=== PATIENT | male | born 1955 | race American Indian/Alaskan Native ===

== ENCOUNTER 2018-01-15 18:15 | Inpatient (IN) | payer MEDICAID, OTHER ==
[2018-01-15] MEDS ORDERED: CATAPRES PO ONE (19:11)
[2018-01-15 20:56] LABS: Basophils % (Auto) 0.7 % (0.0-1.8); Eosinophils # (Auto) 0.2 K/mm3 (0.0-0.4); Eosinophils % (Auto) 3.2 % (0.0-4.3); Hematocrit 45.2 % (35.5-45.6); Hemoglobin 15.1 gm/dl (11.8-15.2); Lymphocytes # (Auto) 2.5 K/mm3 (1.2-5.4); Lymphocytes % (Auto) 42.5 % (13.4-35.0); Mean Corpuscular HGB Conc 33 % (32-34); Mean Corpuscular Hemoglobin 31 pg (28-32); Mean Corpuscular Volume 92 fl (84-94); Monocytes # (Auto) 0.5 K/mm3 (0.0-0.8); Monocytes % (Auto) 8.2 % (0.0-7.3); Platelet Count 219 K/mm3 (140-440); Red Blood Count 4.91 M/mm3 (3.65-5.03); Red Cell Distribution Width 15.2 % (13.2-15.2)
[2018-01-15 21:31] LABS: BUN/Creatinine Ratio 14; Blood Urea Nitrogen 13 mg/dL (9-20); Calcium 9.3 mg/dL (8.4-10.2); Hemolysis Index 35
--- NOTE | 2018-01-15 21:36 | Emergency Department Report ---
ED General Adult HPI - General Chief complaint: High BP Stated complaint: HBP Time Seen by Provider: 01/15/18 20:55 Source: patient Mode of arrival: Ambulatory Limitations: No Limitations - History of Present Illness Initial comments: 62-year-old male with history of hypertension and congestive heart failure was sent to ED by PCP for elevated blood pressure in office. She states he has been out of his BP meds 10 days. Patient reports shortness of breath, dyspnea on exertion, dizziness. States felt like he was going to pass out he is being triaged here in the ED. Patient denies chest pain. MD Complaint: elevated blood pressure -: Gradual Associated Symptoms: shortness of breath, weakness. denies: chest pain, nausea/ vomiting - Related Data Home Medications Medication Instructions Recorded Confirmed Last Taken Carvedilol 25 mg PO BID 01/15/18 01/15/18 Unknown Cyclobenzaprine [Flexeril] 10 mg PO DAILY 01/15/18 01/15/18 Unknown Ibuprofen [Motrin] 800 mg PO Q8HR PRN 01/15/18 01/15/18 Unknown Losartan/Hydrochlorothiazide 1 tab PO DAILY 01/15/18 01/15/18 Unknown [Losartan-Hctz 100-25 mg Tab] Tadalafil [Cialis] 1 tab PO DAILY 01/15/18 01/15/18 Unknown hydrALAZINE [Apresoline] 25 mg PO Q8HR 01/15/18 01/15/18 Unknown Allergies Allergy/AdvReac Type Severity Reaction Status Date / Time salicylates Allergy Unknown Verified 07/28/17 17:57 ED Review of Systems ROS: Stated complaint: HBP Other details as noted in HPI Comment: All other systems reviewed and negative Constitutional: denies: chills, fever Respiratory: shortness of breath. denies: cough Cardiovascular: denies: chest pain Gastrointestinal: denies: abdominal pain, nausea, vomiting Neurological: denies: headache ED Past Medical Hx - Past Medical History Hx Hypertension: Yes Hx Congestive Heart Failure: Yes Additional medical history: 4 CLASS of HEART FAILURE - Surgical History Additional Surgical History: Bilateral inguinal hernias - Social History Smoking Status: Former Smoker Substance Use Type: None - Medications Home Medications: Home Medications Medication Instructions Recorded Confirmed Last Taken Type Carvedilol 25 mg PO BID 01/15/18 01/15/18 Unknown History Cyclobenzaprine [Flexeril] 10 mg PO DAILY 01/15/18 01/15/18 Unknown History Ibuprofen [Motrin] 800 mg PO Q8HR PRN 01/15/18 01/15/18 Unknown History Losartan/Hydrochlorothiazide 1 tab PO DAILY 01/15/18 01/15/18 Unknown History [Losartan-Hctz 100-25 mg Tab] Tadalafil [Cialis] 1 tab PO DAILY 01/15/18 01/15/18 Unknown History hydrALAZINE [Apresoline] 25 mg PO Q8HR 01/15/18 01/15/18 Unknown History ED Physical Exam - General Limitations: No Limitations ED Course Vital Signs 01/15/18 01/15/18 01/15/18 19:03 19:15 21:00 Temperature 97.9 F Pulse Rate 100 H 100 H 67 Respiratory 18 14 Rate Blood Pressure 184/131 184/131 O2 Sat by Pulse 98 Oximetry 01/15/18 01/15/18 21:16 21:56 Temperature Pulse Rate 67 Respiratory 11 L 18 Rate Blood Pressure 167/123 O2 Sat by Pulse 99 98 Oximetry ED Medical Decision Making - Lab Data Result diagrams: 01/15/18 19:19 01/15/18 19:19 - EKG Data -: EKG Interpreted by Tx EKG shows normal: sinus rhythm, axis, intervals, QRS complexes, ST-T waves Rate: normal - EKG Data Interpretation: other (LVH, old inferior infarct) - Radiology Data Radiology results: report reviewed, image reviewed - Medical Decision Making 63-year-old male with hypertension and CHF presents to ED with uncontrolled high blood pressure. Patient had her BP meds 10 days, sent to ER by PCP for further evaluation. Patient reports dyspnea on exertion, dizziness, and near syncopal episodes today. EKG shows no ST changes however initial troponin elevated 0.03. Second troponin has decreased into the normal range. Chest x- ray shows no edema or effusion. BP remains elevated despite clonidine given upon initial arrival, so IV hydralazine given. Will admit patient for hypertensive urgency. Spoke with hospitalist, Dr Rain, agrees to admit. - Differential Diagnosis hypertensive emergency, CVA, pulm edema, ACS Critical Care Time: Yes (35) Critical care time in (mins) excluding proc time.: 35 Critical care attestation.: If time is entered above; I have spent that time in minutes in the direct care of this critically ill patient, excluding procedure time. Critical Care Time: 35 minutes ED Disposition Clinical Impression: Hypertensive emergency Disposition: DC-[id number] OP ADMIT IP TO THIS HOSP Is pt being admited?: Yes Condition: Stable Instructions: Hypertension (ED) Referrals: DOC,ED, MD [Primary Care Provider] - 3-5 Days Time of Disposition: 22:53
[2018-01-15] MEDS ORDERED: APRESOLINE IV ONE (22:06)
[2018-01-15 22:15] LABS: Chol/HDL Ratio 4.42 %; HDL Cholesterol 40 mg/dL (40-59); LDL Cholesterol,Direct 107 mg/dL (50-130)
--- NOTE | 2018-01-15 22:20 | Cat Scan Report ---
FINAL REPORT PROCEDURE: CT HEAD/BRAIN WO CON TECHNIQUE: Computerized tomography of the head was performed without contrast material. HISTORY: dizziness COMPARISON: No prior studies are available for comparison. FINDINGS: Skull and scalp: A small well-defined fat containing lesion is noted involving the left frontal scalp measuring 3.8 millimeters thickness and 1.5 centimeters in diameter consistent with a lipoma.. Paranasal sinuses: Mild degree mucosal thickening is noted involving right frontal sinus.. Ventricles and subarachnoid spaces: Normal. Cerebrum: There is moderate degree bilateral periventricular nonspecific white matter hypodensity is noted most likely representing chronic microangiopathy. An irregular area of encephalomalacia involving the left medial occipital lobe is again noted without interval change. An acute intra-axial or extra-axial hemorrhage or mass effect is not identified.. Cerebellum and brainstem: No evidence of hemorrhage, acute infarction or mass. Vasculature: Atherosclerotic calcification is noted involving bilateral internal carotid and vertebral arteries.. Comments: None. IMPRESSION: No acute intracranial hemorrhage Irregular area of encephalomalacia involving medial left occipital lobe most likely represents an old infarct or hemorrhage. Small fat containing left frontal scalp lesion is consistent with a lipoma.
--- NOTE | 2018-01-15 22:43 | XRay Report ---
FINAL REPORT PROCEDURE: XR CHEST 1V AP TECHNIQUE: Chest radiograph anteroposterior view. CPT 90645 HISTORY: sob COMPARISON: 07/28/2017 FINDINGS: Heart: Cardiac size is upper limit of normal. Mediastinum/Vessels: Normal. Lungs/Pleural space: Lungs are hyperinflated. There are no confluent infiltrates or mass lesions. Pleural spaces are clear.. Bony thorax: No acute osseous abnormality. Life support devices: None. IMPRESSION: COPD No acute pulmonary process.
[2018-01-16] MEDS ORDERED: APRESOLINE IV PRN (00:16)
[2018-01-16] MEDS ORDERED: ZOFRAN IV PRN (00:18)
[2018-01-16] MEDS ORDERED: RESTORIL PO PRN (00:19)
[2018-01-16] MEDS: TYLENOL PO PRN ×2 (01:32→06:41)
--- NOTE | 2018-01-16 04:37 | History and Physical Report ---
CHIEF COMPLAINT: Elevated blood pressure. OTHER COMPLAINT: Includes near syncopal feeling. HISTORY OF PRESENT ILLNESS: The patient is a 62-year-old male sent to the Emergency Room by his primary care doctor after he presented in the office with elevated high blood pressure. The patient said he has been out of his blood pressure medications for about 10 days and also there is feeling of near syncope. Also, the patient has complained of shortness of breath and denied history of chest pain, denied history of cough, nausea or vomiting, and also denied history of chills. PAST MEDICAL HISTORY: Pertinent for hypertension, congestive heart failure. PAST SURGICAL HISTORY: Pertinent for bilateral inguinal hernia repairs. FAMILY HISTORY: Noncontributory. SOCIAL HISTORY: The patient does not smoke, does not drink alcohol, and does not use illicit drugs. MEDICATIONS: The patient is on carvedilol 25 mg by mouth twice daily, Flexeril 10 mg by mouth daily, Motrin 800 mg by mouth every 8 hours as needed for pain, losartan/HCTZ 100/25 mg 1 by mouth daily, Cialis 1 tablet by mouth daily, hydralazine 25 mg by mouth every 8 hours. ALLERGIES: The patient is allergic to SALICYLATE. REVIEW OF SYSTEMS: CONSTITUTIONAL: There is no fever, no chills, no diaphoresis. HEENT: There is no headache or sore throat. CARDIOVASCULAR SYSTEM: There is no chest pain or orthopnea. RESPIRATORY SYSTEM: Shortness of breath is present, no cough. GASTROINTESTINAL SYSTEM: There is no nausea, no vomiting, no abdominal pain, diarrhea or constipation. NEUROLOGICAL SYSTEM: Near syncopal feeling present. No change in mental status. MUSCULOSKELETAL SYSTEM: There is no joint pain or swelling. DERMATOLOGICAL SYSTEM: There is no skin rash or itching. GENITOURINARY SYSTEM: There is no dysuria, hematuria or flank pain. Rest of system review is normal. PHYSICAL EXAMINATION: GENERAL: At the time of exam, the patient was found to be alert, oriented x 3, and not in the field. VITAL SIGNS: Shows temperature of 97.9 degrees Fahrenheit, pulse 100, respiration 18, blood pressure 184/131, and O2 sat of 98% on room air. HEENT: Exam show pupils to be equal, round, reactive to light and accommodation. Extraocular muscles are intact. NECK: Supple with no JVD or carotid bruit. CARDIOVASCULAR SYSTEM: Show normal first and second heart sounds with no gallops or murmurs. RESPIRATORY SYSTEM: Show good air entry on both sides of the lungs with no abnormal breath sounds. GASTROINTESTINAL SYSTEM: Show abdomen to be full, soft, and nontender with no organomegaly or rigidity. NEUROLOGIC: Exam shows no focal deficit. MUSCULOSKELETAL SYSTEM: Show no joint swelling or tenderness. DERMATOLOGICAL SYSTEM: Showed no skin rash. GENITOURINARY SYSTEM: Showing no costovertebral angle tenderness. PERTINENT LABORATORY AND IMAGING STUDIES: The patient had a CT of the head without contrast done that came back normal. Also, the patient has had chest x-ray done that came back normal. The patient's lab results and the patient's CBC showed normal white count, normal hemoglobin, and normal hematocrit with CBC differential showing elevated lymphocyte count of 42.5% and elevated monocyte count of 8.2%. The patient's chemistry was unremarkable. The patient's cardiac enzymes show elevated first troponin level of 0.030, with two other troponin level`s coming back to normal range. DIAGNOSES: 1. Hypertensive crisis. 2. Elevated troponin level. CARE OF PLAN: 1. The patient will be admitted to telemetry. 2. The patient will have cardiac enzymes involving troponin, total CK and CK-MB checked every 6 hours x 2 more levels. 3. The patient will be on intravenous hydralazine 10 mg every 4 hours as needed for blood pressure of 160/90 or more. 4. The patient will be on his home medications as shown in the medication reconciliation section and this includes other blood pressure medications like Cozaar 100 mg daily and hydrochlorothiazide 25 mg daily. The patient will be on temazepam or Restoril 15 mg at bedtime for insomnia. 5. The patient will be on other as needed medications like Tylenol 650 mg by mouth every 4 hours for fever, headache, Zofran 4 mg intravenous every 8 hours for nausea and vomiting. The patient's deep venous thrombosis prophylaxis will be through heparin 5000 units subcutaneous every 12 hours. The patient's diet will be low-sodium diet. JOB# [id number] OCN/NTS JEAN-CLAUDED
[2018-01-16] MEDS ORDERED: CATAPRES PO ONE (06:05)
[2018-01-16 06:18] LABS: Creatine Kinase MB 20.4 ng/mL (0.0-4.0)
[2018-01-16] MEDS ORDERED: TADALAFIL PO SCH (10:00)
[2018-01-16] MEDS ORDERED: COREG PO SCH (10:00)
[2018-01-16] MEDS ORDERED: FLEXERIL PO SCH (10:00)
[2018-01-16] MEDS ORDERED: COZAAR PO SCH (10:00)
[2018-01-16] MEDS ORDERED: HCTZ PO SCH (10:00)
[2018-01-16] MEDS ORDERED: HEPARIN SUB-Q SCH (10:00)
[2018-01-16 12:41] LABS: Creatine Kinase MB 15.3 ng/mL (0.0-4.0)
--- NOTE | 2018-01-16 15:11 | Discharge Summary ---
Providers - Providers Date of Admission: 01/16/18 00:13 Attending physician: MISA RODRIGUEZ MD Primary care physician: ED TONNY Hospitalization Reason for admission: Hypertensive Urgency Condition: Stable Pertinent studies: Head CT was normal Chest x-ray was normal Hospital course: 62-year-old male with history of hypertension and congestive heart failure was sent to ED by PCP for elevated blood pressure in office. She states he has been out of his BP meds 10 days. Patient reports shortness of breath, but no chest painor diaphoresis. In the emergency department patient was given IV hydralazine and clonidine which controls his blood pressure. Patient was admitted to the floor and shortness of breath was getting better he didn't have any symptoms. He was restarted with his home medications. Patient is hemodynamically stable. Patient discharged home. A shunt was given appropriate medications at the time of discharge. Disposition: - TO HOME OR SELFCARE Time spent for discharge: 32 minutes - Discharge Diagnoses (1) Elevated troponin Status: Acute (2) Uncontrolled hypertension Status: Acute (3) Chest pain Status: Resolved Core Measure Documentation - Palliative Care Palliative Care/ Comfort Measures: Not Applicable - Core Measures Any of the following diagnoses?: none Exam - Physical Exam Narrative exam: Not in cardiopulmonary distress. The patient appeared well nourished and normally developed. Vital signs as documented. Head exam is unremarkable. No scleral icterus . Neck is without jugular venous distension, thyromegaly, or carotid bruits. Lungs are clear to auscultation. Cardiac exam reveals regular rate and Rhythm. First and second heart sounds normal. No murmurs, rubs or gallops. Abdominal exam reveals normal bowel sounds, no masses, no organomegaly and no aortic enlargement. Extremities are nonedematous and both femoral and pedal pulses are normal. [employer]: Alert and oriented 3. No focal weakness. - Constitutional Vitals: Temp Pulse Resp BP Pulse Ox 98.8 F 85 20 130/91 98 01/16/18 12:11 01/16/18 12:11 01/16/18 12:11 01/16/18 12:11 01/16/18 12:11 Plan Activity: no restrictions Weight Bearing Status: Full Weight Bearing Diet: low cholesterol, low salt Follow up with: TONNY,ARLETH, [Primary Care Provider] - 3-5 Days Prescriptions: Carvedilol 25 mg PO BID #60 tablet Cyclobenzaprine [Flexeril 10 MG TAB] 10 mg PO DAILY #30 tablet hydrALAZINE [Apresoline TAB] 25 mg PO Q8HR #90 tablet Losartan/Hydrochlorothiazide [Losartan-Hctz 100-25 mg Tab] 1 tab PO DAILY #30 tablet oxyCODONE /ACETAMINOPHEN [Percocet 5/325] 1 tab PO Q6HR PRN #12 tablet PRN Reason: Pain
[2018-01-16] MEDS ORDERED: APRESOLINE PO SCH (16:00)
[2018-01-16 17:29] VITALS: BP 135/97
== END 2018-01-16 21:00 | disposition home or self-care (01) | DRG 305 ==
LOC: ED 18:15 → 4A 01-16 00:13
PROVIDERS: ADMIT Internal Medicine; ATTEND Internal Medicine
DX: I16.1 Hypertensive emergency (principal); I11.0 Hypertensive heart disease with heart failure; I50.9 Heart failure, unspecified; Z79.899 Other long term (current) drug therapy; Z88.8 Allergy status to other drugs, medicaments and biological substances; Z87.891 Personal history of nicotine dependence
CPT/HCPCS: 36415; 70450; 71045; 80048; 80061; 82550; 82553; 83880; 84484; 85025; 93005; 93010; 99291; J0360; J1644

== ENCOUNTER 2018-05-08 13:34 | Emergency (ER) | payer SELFPAY ==
[2018-05-08] MEDS ORDERED: DELTASONE PO ONE (14:28)
[2018-05-08] MEDS ORDERED: TORADOL IM ONE (14:28)
--- NOTE | 2018-05-08 14:37 | Emergency Department Report ---
ED Back Pain/Injury HPI - General Chief Complaint: Back Pain/Injury Stated Complaint: BOTH FEET SWELLING/BODY PAIN Time Seen by Provider: 05/08/18 14:22 Source: patient Limitations: No Limitations - History of Present Illness Initial Comments: This is a 62-year-old male nontoxic, well nourished in appearance, no acute signs of distress presents to the ED with c/o of lower back pain x2 months. Patient denies any history of back pain. Patient stated he saw her PCP and was given "muscle relaxer" with minimal to no relief. Patient states that pain radiates through to his bilateral lower extremity. Patient denies any trauma. Patient also stated that he has pain and tingling sensation to bilateral feet and hands. Patient denies any trauma. Denies any bladder or bowel instability. Patient denies any urinary symptoms. Denies any fever, chills, nausea, vomiting, headache, stiff neck, chest pain or shortness of breath. Patient denies any numbness or tingling. Stated allergies to Salicylates. PMH of CHF and HTN. MD Complaint: back pain -: month(s) (2) Similar Symptoms Previously: No Radiation: left leg, right leg Severity: mild Severity scale (0 -10): 8 Quality: aching Consistency: intermittent Improves With: immobilization, sitting upright Worsens With: movement, walking Associated Symptoms: denies other symptoms. denies: confusion, weakness, chest pain, numbness, difficulty walking, cough, difficulty urinating, diaphoresis, incontinence, fever/chills, constipation, headaches, abdominal pain, loss of appetite, malaise, nausea/vomiting, rash, seizure, shortness of breath, syncope - Related Data Home Medications Medication Instructions Recorded Confirmed Last Taken Ibuprofen [Motrin 800 MG tab] 800 mg PO Q8HR PRN 01/15/18 01/15/18 Unknown Tadalafil [Cialis] 1 tab PO DAILY 01/15/18 01/15/18 Unknown Previous Rx's Medication Instructions Recorded Last Taken Type Carvedilol 25 mg PO BID #60 tablet 01/16/18 Unknown Rx Cyclobenzaprine [Flexeril 10 MG 10 mg PO DAILY #30 tablet 01/16/18 Unknown Rx TAB] Losartan/Hydrochlorothiazide 1 tab PO DAILY #30 tablet 01/16/18 Unknown Rx [Losartan-Hctz 100-25 mg Tab] hydrALAZINE [Apresoline TAB] 25 mg PO Q8HR #90 tablet 01/16/18 Unknown Rx oxyCODONE /ACETAMINOPHEN [Percocet 1 tab PO Q6HR PRN #12 tablet 01/16/18 Unknown Rx 5/325] Methocarbamol [Robaxin TAB] 750 mg PO QHS PRN #10 tab 05/08/18 Unknown Rx Naproxen [Naprosyn TAB] 500 mg PO Q8H PRN #20 tablet 05/08/18 Unknown Rx Allergies Allergy/AdvReac Type Severity Reaction Status Date / Time salicylates Allergy Unknown Verified 05/08/18 14:18 ED Review of Systems ROS: Stated complaint: BOTH FEET SWELLING/BODY PAIN Other details as noted in HPI Constitutional: denies: chills, fever Eyes: denies: eye pain, eye discharge, vision change ENT: denies: ear pain, throat pain Respiratory: denies: cough, shortness of breath, wheezing Cardiovascular: denies: chest pain, palpitations Endocrine: no symptoms reported Gastrointestinal: denies: abdominal pain, nausea, diarrhea Genitourinary: denies: urgency, dysuria Musculoskeletal: back pain, arthralgia. denies: joint swelling Skin: denies: rash, lesions Neurological: denies: headache, weakness, paresthesias Psychiatric: denies: anxiety, depression Hematological/Lymphatic: denies: easy bleeding, easy bruising ED Past Medical Hx - Past Medical History Previous Medical History?: Yes Hx Hypertension: Yes Hx Congestive Heart Failure: Yes Additional medical history: 4 CLASS of HEART FAILURE - Surgical History Past Surgical History?: Yes Additional Surgical History: Bilateral inguinal hernias - Social History Smoking Status: Never Smoker Substance Use Type: None - Medications Home Medications: Home Medications Medication Instructions Recorded Confirmed Last Taken Type Ibuprofen [Motrin 800 MG tab] 800 mg PO Q8HR PRN 01/15/18 01/15/18 Unknown History Tadalafil [Cialis] 1 tab PO DAILY 01/15/18 01/15/18 Unknown History Carvedilol 25 mg PO BID #60 tablet 01/16/18 Unknown Rx Cyclobenzaprine [Flexeril 10 MG 10 mg PO DAILY #30 tablet 01/16/18 Unknown Rx TAB] Losartan/Hydrochlorothiazide 1 tab PO DAILY #30 tablet 01/16/18 Unknown Rx [Losartan-Hctz 100-25 mg Tab] hydrALAZINE [Apresoline TAB] 25 mg PO Q8HR #90 tablet 01/16/18 Unknown Rx oxyCODONE /ACETAMINOPHEN [Percocet 1 tab PO Q6HR PRN #12 tablet 01/16/18 Unknown Rx 5/325] Methocarbamol [Robaxin TAB] 750 mg PO QHS PRN #10 tab 05/08/18 Unknown Rx Naproxen [Naprosyn TAB] 500 mg PO Q8H PRN #20 tablet 05/08/18 Unknown Rx ED Physical Exam - General Limitations: No Limitations General appearance: alert, in no apparent distress - Head Head exam: Present: atraumatic, normocephalic - Eye Eye exam: Present: normal appearance - Neck Neck exam: Present: normal inspection, full ROM - Respiratory Respiratory exam: Present: normal lung sounds bilaterally. Absent: respiratory distress, wheezes, rales, rhonchi, stridor, chest wall tenderness, accessory muscle use, decreased breath sounds, prolonged expiratory - Cardiovascular Cardiovascular Exam: Present: regular rate, normal rhythm, normal heart sounds. Absent: bradycardia, tachycardia, irregular rhythm, systolic murmur, diastolic murmur, rubs, gallop - Rectal Rectal exam: Present: deferred - Extremities Exam Extremities exam: Present: normal inspection, full ROM, normal capillary refill. Absent: tenderness, joint swelling - Back Exam Back exam: Present: normal inspection, full ROM, paraspinal tenderness (lumbar paraspinal), vertebral tenderness (lumbar paraspinal). Absent: tenderness, CVA tenderness (R), CVA tenderness (L), muscle spasm, rash noted - Neurological Exam Neurological exam: Present: alert, oriented X3, normal gait - Psychiatric Psychiatric exam: Present: normal affect, normal mood - Skin Skin exam: Present: warm, dry, intact, normal color. Absent: rash ED Course Vital Signs 05/08/18 14:12 Temperature 97.2 F L Pulse Rate 77 Respiratory 16 Rate Blood Pressure 111/52 O2 Sat by Pulse 100 Oximetry - Reevaluation(s) Reevaluation #1: 05/08/18 15:02 Patient is speaking in full sentences with no signs of distress noted. ED Medical Decision Making - Medical Decision Making This is a 62-year-old male that presents with low back strain. Patient is stable was examined by me. There is no spinal tenderness. There is no cauda equina syndrome during examination. No bladder or bowel instability. CT of lumbar spine obtained and dictated by the radiologist. Patient is notified of the CT results with no questions noted by the patient. Patient received Toradol 60 mg IM and prednisone in the ED which preceded his symptoms has resolved and subsided. Patient is discharged with muscle relaxant and Motrin. Patient was instructed not to operate any machinery while taking muscle relaxant as they cause her drowsiness. Patient was referred to Follow-up with a primary care doctor in 3-5 days or if symptoms worsen and continue return to emergency room as soon as possible. At time of discharge, the patient does not seem toxic or ill in appearance. No acute signs of distress noted. Patient agrees to discharge treatment plan of care. No further questions noted by the patient. This chart is dictated with using [employer] Dictation Program Critical care attestation.: If time is entered above; I have spent that time in minutes in the direct care of this critically ill patient, excluding procedure time. ED Disposition Clinical Impression: Lumbar degenerative disc disease Disposition: - TO HOME OR SELFCARE Is pt being admited?: No Does the pt Need Aspirin: No Condition: Stable Instructions: Naproxen (By mouth), Methocarbamol (By mouth), Degenerative Disc Disease (ED) Additional Instructions: Follow-up with a primary care doctor in 3-5 days or if symptoms worsen and continue return to emergency room as soon as possible. Prescriptions: Methocarbamol [Robaxin TAB] 750 mg PO QHS PRN #10 tab PRN Reason: Muscle Spasm Naproxen [Naprosyn TAB] 500 mg PO Q8H PRN #20 tablet PRN Reason: Pain, Moderate (4-6) Referrals: PRIMARY MD CARLA [Primary Care Provider] - 3-5 Days ALISSA GALAVIZ MD [Staff Physician] - 3-[address] [facility] [Outside] - 3-5 Days [facility] [Outside] - 3-5 Days
--- NOTE | 2018-05-08 15:37 | Cat Scan Report ---
FINAL REPORT EXAM: CT LUMBAR SPINE WO CON HISTORY: low back strain COMPARISON: None. TECHNIQUE: Multiple contiguous axial images were obtained through the lumbar spine without administr ation of IV contrast. Reformatted sagittal and coronal images were available for review. FINDINGS: There is normal alignment without acute fracture or dislocation. The vertebral body heights are maint ained. The paravertebral soft tissues are normal. T12-L1: Mild intervertebral disc space narrowing. No central or foraminal stenosis. L1-L2: Mild intervertebral disc space narrowing. Mild bilateral facet arthropathy. Mild broad-based d isc bulge. Mild central stenosis. No foraminal stenosis. L2-L3: Mild intervertebral disc space narrowing. Mild broad-based disc bulge. Mild facet arthropathy. No central stenosis or foraminal stenosis. L3-L4: Mild intervertebral disc space narrowing. Mild broad-based disc bulge. Mild facet arthropathy. No central or foraminal stenosis. L4-L5: Mild intervertebral disc space narrowing. Mild broad-based disc bulge. Mild facet arthropathy. No central or foraminal stenosis. L5-S1: Mild intervertebral disc space narrowing. Mild facet arthropathy. No central or foraminal sten osis. IMPRESSION: Mild multilevel degenerative disc disease with mild central stenosis at L1-L2. No acute fracture or d islocation.
[2018-05-08 16:04] VITALS: BP 111/72
== END 2018-05-08 16:04 | disposition home or self-care (01) ==
LOC: ED 13:34
DX: M51.36 Other intervertebral disc degeneration, lumbar region (principal); I11.0 Hypertensive heart disease with heart failure; I50.9 Heart failure, unspecified
CPT/HCPCS: 72131; 96372; 99283; J1885; J7512

== ENCOUNTER 2019-07-11 01:16 | Inpatient (IN) | payer MEDICAID ==
[2019-07-11] MEDS ORDERED: hydrALAZINE 20 MG/1 ML INJ IV ONE ×2 (01:38→06:29)
--- NOTE | 2019-07-11 01:39 | Emergency Department Report ---
ED Abdominal Pain HPI - General Chief Complaint: Dyspnea/Respdistress Stated Complaint: CEASAR/CHEST PAIN Time Seen by Provider: 07/11/19 01:28 Source: patient, EMS Mode of arrival: Stretcher Limitations: No Limitations - History of Present Illness Initial Comments: Patient is a 63-year-old F Gren[place] male who is presenting with shortness of breath. Patient was attempting to go to bed and he became very short of breath at home. He denies any chest pain cough cold congestion fevers or chills. Patient states he just had a sensation that he was being smothered. He states he is compliant with his medications. Takes several blood pressure medicines at this time. - Related Data Home Medications Medication Instructions Recorded Confirmed Last Taken Ibuprofen [Motrin 800 MG tab] 800 mg PO Q8HR PRN 01/15/18 01/15/18 Unknown Tadalafil [Cialis] 1 tab PO DAILY 01/15/18 01/15/18 Unknown Previous Rx's Medication Instructions Recorded Last Taken Type Cyclobenzaprine [Flexeril 10 MG 10 mg PO DAILY #30 tablet 01/16/18 Unknown Rx TAB] Losartan/Hydrochlorothiazide 1 tab PO DAILY #30 tablet 01/16/18 Unknown Rx [Losartan-Hctz 100-25 mg Tab] carvediloL [Carvedilol] 25 mg PO BID #60 tablet 01/16/18 Unknown Rx hydrALAZINE [Apresoline TAB] 25 mg PO Q8HR #90 tablet 01/16/18 Unknown Rx oxyCODONE /ACETAMINOPHEN [Percocet 1 tab PO Q6HR PRN #12 tablet 01/16/18 Unknown Rx 5/325] Naproxen [Naprosyn TAB] 500 mg PO Q8H PRN #20 tablet 05/08/18 Unknown Rx methOCARBAMOL [Robaxin TAB] 750 mg PO QHS PRN #10 tab 05/08/18 Unknown Rx Allergies Allergy/AdvReac Type Severity Reaction Status Date / Time salicylates Allergy Unknown Verified 05/08/18 14:18 ED Review of Systems ROS: Stated complaint: CEASAR/CHEST PAIN Other details as noted in HPI Comment: All other systems reviewed and negative ED Past Medical Hx - Past Medical History Previous Medical History?: Yes Hx Hypertension: Yes Hx Congestive Heart Failure: Yes Additional medical history: 4 CLASS of HEART FAILURE - Surgical History Past Surgical History?: Yes Additional Surgical History: Bilateral inguinal hernias - Social History Smoking Status: Never Smoker - Medications Home Medications: Home Medications Medication Instructions Recorded Confirmed Last Taken Type Ibuprofen [Motrin 800 MG tab] 800 mg PO Q8HR PRN 01/15/18 01/15/18 Unknown History Tadalafil [Cialis] 1 tab PO DAILY 01/15/18 01/15/18 Unknown History Cyclobenzaprine [Flexeril 10 MG 10 mg PO DAILY #30 tablet 01/16/18 Unknown Rx TAB] Losartan/Hydrochlorothiazide 1 tab PO DAILY #30 tablet 01/16/18 Unknown Rx [Losartan-Hctz 100-25 mg Tab] carvediloL [Carvedilol] 25 mg PO BID #60 tablet 01/16/18 Unknown Rx hydrALAZINE [Apresoline TAB] 25 mg PO Q8HR #90 tablet 01/16/18 Unknown Rx oxyCODONE /ACETAMINOPHEN [Percocet 1 tab PO Q6HR PRN #12 tablet 01/16/18 Unknown Rx 5/325] Naproxen [Naprosyn TAB] 500 mg PO Q8H PRN #20 tablet 05/08/18 Unknown Rx methOCARBAMOL [Robaxin TAB] 750 mg PO QHS PRN #10 tab 05/08/18 Unknown Rx ED Physical Exam - General Limitations: No Limitations General appearance: alert, in no apparent distress - Head Head exam: Present: atraumatic, normocephalic - Eye Eye exam: Present: normal appearance, PERRL, EOMI - ENT ENT exam: Present: mucous membranes moist - Neck Neck exam: Present: normal inspection - Respiratory Respiratory exam: Present: normal lung sounds bilaterally. Absent: respiratory distress, wheezes, rales, rhonchi - Cardiovascular Cardiovascular Exam: Present: regular rate, normal rhythm, normal heart sounds. Absent: systolic murmur, diastolic murmur, rubs, gallop - GI/Abdominal GI/Abdominal exam: Present: soft, normal bowel sounds. Absent: distended, tenderness, guarding, rebound - Rectal Rectal exam: Present: deferred - Extremities Exam Extremities exam: Present: normal inspection - Back Exam Back exam: Present: normal inspection - Neurological Exam Neurological exam: Present: alert, oriented X3 - Psychiatric Psychiatric exam: Present: normal affect, normal mood - Skin Skin exam: Present: warm, dry, intact, normal color. Absent: rash ED Course Vital Signs 07/11/19 01:26 Temperature 98.5 F Pulse Rate 88 Respiratory 20 Rate Blood Pressure 189/110 O2 Sat by Pulse 100 Oximetry ED Medical Decision Making - Lab Data Result diagrams: 07/11/19 01:47 07/11/19 01:47 Labs 07/11/19 07/11/19 07/11/19 01:47 01:47 01:47 WBC 5.5 RBC 4.41 Hgb 13.0 Hct 39.7 MCV 90 MCH 30 MCHC 33 RDW 16.7 H Plt Count 212 Lymph % (Auto) 37.8 H [place] % (Auto) 8.4 H Eos % (Auto) 2.9 Baso % (Auto) 1.1 Lymph # 2.1 [place] # 0.5 Eos # 0.2 Baso # 0.1 Seg Neutrophils % 49.8 Seg Neutrophils # 2.7 PT 13.3 INR 1.00 APTT 27.6 D-Dimer 3164.18 H Sodium 141 Potassium 4.3 Chloride 104.4 Carbon Dioxide 24 Anion Gap 17 BUN 11 Creatinine 1.0 Estimated GFR > 60 BUN/Creatinine Ratio 11 Glucose 99 Calcium 9.1 Troponin T NT-Pro-B Natriuret Pep 07/11/19 07/11/19 01:47 01:47 WBC RBC Hgb Hct MCV MCH MCHC RDW Plt Count Lymph % (Auto) [place] % (Auto) Eos % (Auto) Baso % (Auto) Lymph # [place] # Eos # Baso # Seg Neutrophils % Seg Neutrophils # PT INR APTT D-Dimer Sodium Potassium Chloride Carbon Dioxide Anion Gap BUN Creatinine Estimated GFR BUN/Creatinine Ratio Glucose Calcium Troponin T 0.019 NT-Pro-B Natriuret Pep 136.8 - EKG Data -: EKG Interpreted by Or EKG shows normal: sinus rhythm, axis, intervals, QRS complexes, ST-T waves Rate: normal - EKG Data Interpretation: normal EKG - Radiology Data CT angio chest INDICATION / CLINICAL INFORMATION: MAIN: dyspnea with elevated D Dimer. 100 ML OMNIPAQUE 350. TECHNIQUE: Axial CT images were obtained after injection of 100 cc of Omnipaque 350 IV contrast using CTA protocol. 3 plane MIP / 3D reconstructions were produced. All CT scans at this location are performed using CT dose reduction for ALARA by means of automated exposure control. COMPARISON: 06/05/2014 FINDINGS: Following the administration of intravenous contrast, filling defects are seen in lower lobe branches bilaterally. There are some small bulla seen in both lungs. The ascending thoracic aorta is mildly ectatic. Soft tissue density is seen adjacent to the descending thoracic aorta and is of unknown clinical significance. No enlarged mediastinal or hilar lymph nodes are identified. No significant skeletal abnormality is identified. IMPRESSION: 1. Positive pulmonary emboli in the bilateral lower lobe branches. This is a positive critical result discovered on 07/11/2019 at 0225 hours central time and personally communicated to Dr. Obrien in the [facility] emergency department at 0228 hours Central time 2. There are small bulla seen in both lungs 3. Soft tissue density adjacent to the descending thoracic aorta of unknown clinical significance. There is ectasia of the ascending thoracic aorta Signer Name: Gustavo Posada MD FACR Signed: 07/11/2019 2:31 AM Workstation Name: [id number] - Medical Decision Making Patient is a 63-year-old F [place] male who states he had sudden onset of shortness of breath earlier today. Patient has no risk factors for pulmonary embolus however he has bilateral pulmonary embolus seen on CT. Chest x-ray was within normal limits. Patient was started on heparin will be admitted to the hospitalist service. Critical care attestation.: If time is entered above; I have spent that time in minutes in the direct care of this critically ill patient, excluding procedure time. ED Disposition Clinical Impression: Pulmonary emboli, Uncontrolled hypertension Disposition: OP ADMIT IP TO THIS HOSP Is pt being admited?: Yes Does the pt Need Aspirin: No Condition: Stable Instructions: Hypertension (ED) Time of Disposition: 04:10
[2019-07-11 01:57] LABS: Basophils # (Auto) 0.1 K/mm3 (0.0-0.1); Basophils % (Auto) 1.1 % (0.0-1.8); Eosinophils # (Auto) 0.2 K/mm3 (0.0-0.4); Eosinophils % (Auto) 2.9 % (0.0-4.3); Hematocrit 39.7 % (35.5-45.6); Lymphocytes # (Auto) 2.1 K/mm3 (1.2-5.4); Lymphocytes % (Auto) 37.8 % (13.4-35.0); Mean Corpuscular HGB Conc 33 % (32-34); Mean Corpuscular Volume 90 fl (84-94); Monocytes # (Auto) 0.5 K/mm3 (0.0-0.8); Monocytes % (Auto) 8.4 % (0.0-7.3); Platelet Count 212 K/mm3 (140-440); Red Blood Count 4.41 M/mm3 (3.65-5.03); Red Cell Distribution Width 16.7 % (13.2-15.2)
--- NOTE | 2019-07-11 02:06 | XRay Report ---
CHEST 1 VIEW INDICATION / CLINICAL INFORMATION: dyspnea. COMPARISON: 07/28/2017 FINDINGS: SUPPORT DEVICES: None. HEART / MEDIASTINUM: The ascending thoracic aorta appears to be dilated LUNGS / PLEURA: No significant pulmonary or pleural abnormality. No pneumothorax. ADDITIONAL FINDINGS: No significant additional findings. IMPRESSION: The ascending thoracic aorta appears to be significantly dilated similar appearance to 07/28/2017. No a cute pulmonary or pleural abnormality. Signer Name: Gustavo Posada MD FACR Signed: 07/11/2019 2:01 AM Workstation Name: [id number]
[2019-07-11 02:11] LABS: Partial Thromboplastin Time 27.6 Sec. (24.2-36.6)
[2019-07-11 02:20] LABS: BUN/Creatinine Ratio 11; Blood Urea Nitrogen 11 mg/dL (9-20); Calcium 9.1 mg/dL (8.4-10.2); Hemolysis Index 4
[2019-07-11] MEDS ORDERED: diphenhydrAMINE 50 MG/ML VIAL IV ONE (02:32)
[2019-07-11] MEDS ORDERED: diphenhydrAMINE 50 MG/ML VIAL ONE (02:34)
[2019-07-11] MEDS ORDERED: KETOROLAC 30 MG/1 ML INJ IV ONE (03:01)
[2019-07-11] MEDS ORDERED: KETOROLAC 30 MG/1 ML INJ ONE (03:03)
[2019-07-11] MEDS ORDERED: HEPARIN 10,000 UNITS/10 ML VIAL IV ONE (03:30)
[2019-07-11] MEDS ORDERED: HYDROcodone/ACETAMINOPHEN 5-325 MG TAB PO ONE (03:31)
--- NOTE | 2019-07-11 03:35 | Cat Scan Report ---
CT angio chest INDICATION / CLINICAL INFORMATION: MAIN: dyspnea with elevated D Dimer. 100 ML OMNIPAQUE 350. TECHNIQUE: Axial CT images were obtained after injection of 100 cc of Omnipaque 350 IV contrast using CTA protoc ol. 3 plane MIP / 3D reconstructions were produced. All CT scans at this location are performed using CT dose reduction for ALARA by means of automated exposure control. COMPARISON: 06/05/2014 FINDINGS: Following the administration of intravenous contrast, filling defects are seen in lower lobe branches bilaterally. There are some small bulla seen in both lungs. The ascending thoracic aorta is mildly e ctatic. Soft tissue density is seen adjacent to the descending thoracic aorta and is of unknown clini pb significance. No enlarged mediastinal or hilar lymph nodes are identified. No significant skeleta l abnormality is identified. IMPRESSION: 1. Positive pulmonary emboli in the bilateral lower lobe branches. This is a positive critical result discovered on 07/11/2019 at 0225 hours central time and personally communicated to Dr. Obrien in the [facility] emergency department at 0228 hours Central time 2. There are small bulla seen in both lungs 3. Soft tissue density adjacent to the descending thoracic aorta of unknown clinical significance. Th ere is ectasia of the ascending thoracic aorta Signer Name: Gustavo Posada MD FACR Signed: 07/11/2019 3:31 AM Workstation Name: [id number]
[2019-07-11] MEDS: HEPARIN/ 0.45% NACL DRIP 25,000 UNIT/500 ML BAG IV SCH ×2 (04:22→21:45)
[2019-07-11] MEDS ORDERED: ACETAMINOPHEN 325 MG TAB PO PRN (05:07)
[2019-07-11] MEDS ORDERED: ONDANSETRON 4 MG/2 ML INJ IV PRN (05:07)
[2019-07-11] MEDS ORDERED: DEXTROSE 50% IN WATER (25GM) 50 ML SYRINGE IV PRN (05:07)
--- NOTE | 2019-07-11 05:17 | History and Physical Report ---
History of Present Illness Date of examination: 07/11/19 Date of admission: 07/10/2019 Chief complaint: Shortness of Breath History of present illness: 63-year-old -[place] male with known history of diabetes mellitus, hypertension and congestive heart failure presenting to the emergency room today complaining of shortness of breath. Shortness of breath said to have started less than 24 hours ago while he was lying down. He denies any chest pain, no nausea vomiting, no diarrhea, no fever or chills. Work-up in the emergency room reveals elevated d-dimer CT angiogram reveals bilateral pulmonary embolism. Patient indicates a remote history of bilateral lower extremity surgery in the past for blood clot. He denies use of any anticoagulation. Patient has been started on heparin drip. Past History Past Medical History: hypertension Past Surgical History: No surgical history Social history: no significant social history Family history: no significant family history Medications and Allergies Allergies Allergy/AdvReac Type Severity Reaction Status Date / Time salicylates Allergy Unknown Verified 05/08/18 14:18 Home Medications Medication Instructions Recorded Confirmed Last Taken Type Ibuprofen [Motrin 800 MG tab] 800 mg PO Q8HR PRN 01/15/18 07/11/19 Unknown History Tadalafil [Cialis] 1 tab PO DAILY 01/15/18 07/11/19 Unknown History Cyclobenzaprine [Flexeril 10 MG 10 mg PO DAILY #30 tablet 01/16/18 07/11/19 Unknown Rx TAB] carvediloL [Carvedilol] 25 mg PO BID #60 tablet 01/16/18 07/11/19 Unknown Rx oxyCODONE /ACETAMINOPHEN [Percocet 1 tab PO Q6HR PRN #12 tablet 01/16/18 07/11/19 Unknown Rx 5/325] Naproxen [Naprosyn TAB] 500 mg PO Q8H PRN #20 tablet 05/08/18 07/11/19 Unknown Rx methOCARBAMOL [Robaxin TAB] 750 mg PO QHS PRN #10 tab 05/08/18 07/11/19 Unknown Rx Losartan [Cozaar] 100 mg PO QDAY 07/11/19 07/11/19 Unknown History hydrALAZINE [Apresoline TAB] 25 mg PO QDAY 07/11/19 07/11/19 Unknown History Active Meds: Active Medications Acetaminophen (Tylenol) 650 mg PO Q4H PRN PRN Reason: Pain MILD(1-3)/Fever >100.5/WA[facility] Dextrose (D50w (25gm) Syringe) 50 ml IV Q30MIN PRN; Protocol PRN Reason: Hypoglycemia Heparin Sodium/Sodium Chloride (Heparin/ 0.45% Nacl-25,000 Unit/500 Ml) 25,000 unit in 500 mls @ 23 mls/hr IV TITR THAD; Protocol Last Admin: 07/11/19 04:22 Dose: 1,150 units/hr, 23 mls/hr Documented by: Insulin Human Lispro (Humalog) 0 unit SUB-Q ACHS THAD; Protocol Ondansetron HCl (Zofran) 4 mg IV Q8H PRN PRN Reason: Nausea And Vomiting Sodium Chloride (Sodium Chloride Flush Syringe 10 Ml) 10 ml IV BID THAD Sodium Chloride (Sodium Chloride Flush Syringe 10 Ml) 10 ml IV PRN PRN PRN Reason: LINE FLUSH Review of Systems Constitutional: no fever, no chills Cardiovascular: no chest pain, no palpitations Respiratory: shortness of breath, no cough Gastrointestinal: no nausea, no vomiting, no diarrhea Genitourinary Male: no dysuria, no hematuria Exam - Constitutional Vitals: Temp Pulse Resp BP Pulse Ox 98.4 F 83 18 148/109 100 07/11/19 04:36 07/11/19 04:36 07/11/19 04:36 07/11/19 04:36 07/11/19 01:26 General appearance: Present: no acute distress, mild distress, well-nourished - EENT Eyes: Present: PERRL, EOM intact - Neck Neck: Present: supple, normal ROM - Respiratory Respiratory effort: normal Respiratory: bilateral: CTA - Cardiovascular Rhythm: regular Heart Sounds: Present: S1 & S2 - Extremities Extremities: no ischemia, pulses intact Peripheral Pulses: within normal limits - Abdominal General gastrointestinal: Present: soft, non-tender, non-distended - Integumentary Integumentary: Present: clear, warm, dry - Musculoskeletal Musculoskeletal: strength equal bilaterally - Psychiatric Psychiatric: appropriate mood/affect, intact judgment & insight, cooperative - Neurologic Neurologic: CNII-XII intact, moves all extremities Results - Labs CBC & Chem 7: 07/11/19 01:47 07/11/19 01:47 Labs: Abnormal lab results 07/11/19 07/11/19 Range/Units 01:47 01:47 RDW 16.7 H (13.2-15.2) % Lymph % (Auto) 37.8 H (13.4-35.0) % [place] % (Auto) 8.4 H (0.0-7.3) % D-Dimer 3164.18 H (0-234) ng/mlDDU Assessment and Plan - Patient Problems (1) Pulmonary emboli Current Visit: Yes Status: Acute Plan to address problem: Patient placed on heparin drip. We will overlap with oral Coumadin (2) Diabetes mellitus Current Visit: Yes Status: Acute Plan to address problem: We will monitor Accu-Cheks and resume routine home medications (3) Full code status Current Visit: Yes Status: Acute
[2019-07-11] MEDS ORDERED: hydrALAZINE 20 MG/1 ML INJ ONE (06:31)
[2019-07-11] MEDS: INSULIN LISPRO 100 UNIT/ML SUB-Q SCH ×4 (08:12→21:44)
[2019-07-11] MEDS ORDERED: hydrALAZINE 25 MG TAB ONE (09:30)
[2019-07-11] MEDS ORDERED: carvediloL 25 MG TAB ONE (09:31)
[2019-07-11] MEDS ORDERED: LOSARTAN 50 MG TAB ONE (09:31)
[2019-07-11] MEDS: LOSARTAN 50 MG TAB PO SCH (09:32)
[2019-07-11] MEDS: carvediloL 25 MG TAB PO SCH ×2 (09:32→21:44)
[2019-07-11] MEDS: hydrALAZINE 25 MG TAB PO SCH ×2 (09:32→17:00)
[2019-07-11] MEDS: CYCLOBENZAPRINE 10 MG TAB PO SCH (09:32)
[2019-07-11] MEDS ORDERED: CYCLOBENZAPRINE 10 MG TAB ONE (09:32)
[2019-07-11] MEDS ORDERED: NON-FORMULARY EACH (Losartan [Cozaar] 100 MG) PO SCH (10:00)
[2019-07-11] MEDS: oxyCODONE /ACETAMINOPHEN 5-325MG TAB PO PRN (11:25)
--- NOTE | 2019-07-11 16:36 | Event Note ---
Date: 07/11/19 Acute PE On IV Heparin drip
[2019-07-11] MEDS ORDERED: WARFARIN 5 MG TAB PO SCH (17:00)
[2019-07-12] MEDS: hydrALAZINE 25 MG TAB PO SCH ×3 (00:07→17:05)
[2019-07-12] MEDS: hydrALAZINE 20 MG/1 ML INJ IV PRN ×2 (05:24→11:31)
[2019-07-12 07:57] LABS: INR 1.07 (0.87-1.13)
[2019-07-12] MEDS: INSULIN LISPRO 100 UNIT/ML SUB-Q SCH ×2 (08:00→12:41)
[2019-07-12] MEDS: carvediloL 25 MG TAB PO SCH ×2 (09:07→21:39)
[2019-07-12] MEDS: CYCLOBENZAPRINE 10 MG TAB PO SCH (09:08)
[2019-07-12] MEDS: LOSARTAN 50 MG TAB PO SCH (09:08)
[2019-07-12] MEDS: oxyCODONE /ACETAMINOPHEN 5-325MG TAB PO PRN (09:09)
[2019-07-12] MEDS: BUTALB/ACETAMINOPHEN/CAFFEINE TAB PO PRN (13:40)
[2019-07-12] MEDS ORDERED: WARFARIN 7.5 MG TAB PO SCH (17:00)
[2019-07-12] MEDS: HEPARIN/ 0.45% NACL DRIP 25,000 UNIT/500 ML BAG IV SCH (18:32)
[2019-07-13] MEDS ORDERED: HEPARIN 10,000 UNITS/10 ML VIAL IV ONE (00:24)
[2019-07-13] MEDS: hydrALAZINE 25 MG TAB PO SCH ×2 (00:34→12:46)
[2019-07-13 07:12] LABS: Hematocrit 38.2 % (35.5-45.6); Hemoglobin 12.8 gm/dl (11.8-15.2)
[2019-07-13 07:25] LABS: INR 1.1 (0.87-1.13)
[2019-07-13 09:27] VITALS: BP 154/100
[2019-07-13] MEDS: CYCLOBENZAPRINE 10 MG TAB PO SCH (12:43)
[2019-07-13] MEDS: BUTALB/ACETAMINOPHEN/CAFFEINE TAB PO PRN (12:43)
[2019-07-13] MEDS: carvediloL 25 MG TAB PO SCH (12:45)
[2019-07-13] MEDS: LOSARTAN 50 MG TAB PO SCH (12:46)
[2019-07-13] MEDS: HEPARIN/ 0.45% NACL DRIP 25,000 UNIT/500 ML BAG IV SCH (16:08)
--- NOTE | 2019-07-13 16:52 | Progress Note ---
Assessment and Plan - Patient Problems (1) Acute pulmonary embolism Current Visit: Yes Status: Acute Qualifiers: Acute cor pulmonale presence: without acute cor pulmonale Plan to address problem: Patient on IV heparin drip Symptomatically better but still slightly tachypneic and tachycardic Patient initiated on Coumadin (2) Uncontrolled hypertension Current Visit: Yes Status: Chronic Plan to address problem: Adjust blood pressure medications to control the BP Continue home blood pressure medications (3) DVT prophylaxis Current Visit: Yes Status: Acute Plan to address problem: Patient on IV heparin drip and GI prophylaxis Subjective Date of service: 07/12/19 Principal diagnosis: Acute pulmonary embolism-bilateral Interval history: 63-year-old -Thai male with known history of diabetes mellitus, hypertension and congestive heart failure presenting to the emergency room today complaining of shortness of breath. Shortness of breath said to have started less than 24 hours ago while he was lying down. He denies any chest pain, no nausea vomiting, no diarrhea, no fever or chills. Work-up in the emergency room reveals elevated d-dimer CT angiogram reveals bilateral pulmonary embolism. Patient indicates a remote history of bilateral lower extremity surgery in the past for blood clot. He denies use of any anticoagulation. Patient has been started on heparin drip. Patient is symptomatically better but still short of breath Objective - Constitutional Vitals: Vital Signs - 12hr 07/13/19 07/13/19 07/13/19 07:24 12:45 12:46 Temperature 98.0 F Pulse Rate 76 76 Respiratory 18 Rate Blood Pressure 154/100 General appearance: Present: no acute distress, well-nourished - EENT Eyes: PERRL, EOM intact ENT: hearing intact, clear oral mucosa Ears: bilateral: normal - Neck Neck: supple, normal ROM - Respiratory Respiratory effort: normal Respiratory: bilateral: CTA - Breasts Breasts: normal - Cardiovascular Heart rate: 110 Rhythm: regular Heart Sounds: Present: S1 & S2. Absent: gallop, rub Extremities: no ischemia, pulses intact, No edema, normal color, Full ROM - Gastrointestinal General gastrointestinal: Present: soft, non-tender, non-distended, normal bowel sounds - Genitourinary Male genitourinary: normal - Integumentary Integumentary: clear, warm, dry - Musculoskeletal Musculoskeletal: 1, strength equal bilaterally - Neurologic Neurologic: moves all extremities - Psychiatric Psychiatric: memory intact, appropriate mood/affect, intact judgment & insight - Labs CBC & Chem 7: 07/13/19 06:44 07/11/19 01:47 Labs: Abnormal lab results 07/12/19 07/13/19 Range/Units 23:05 06:44 Heparin Anti-Xa Level 0.00 L 0.90 H (0.3-0.7) U.I./ml
--- NOTE | 2019-07-13 16:59 | Discharge Summary ---
Providers - Providers Date of Admission: 07/11/19 03:32 Date of discharge: 07/13/19 Attending physician: HANNY KLEIN 07/11/19 05:08 Consult to Dietitian/Nutrition [CONS] Routine Physician Instructions: Reason For Exam: Reason for Consult: Diet education [facility] Condition: Stable Pertinent studies: CT angiogram--bilateral pulmonary embolism no cor pulmonale Hospital course: Subjective Date of service: 07/13/19 Principal diagnosis: Acute pulmonary embolism-bilateral Interval history: 63-year-old -[place] male with known history of diabetes mellitus, hypertension and congestive heart failure presenting to the emergency room today complaining of shortness of breath. Shortness of breath said to have started less than 24 hours ago while he was lying down. He denies any chest pain, no nausea vomiting, no diarrhea, no fever or chills. Work-up in the emergency room reveals elevated d-dimer CT angiogram reveals bilateral pulmonary embolism. Patient indicates a remote history of bilateral lower extremity surgery in the past for blood clot. He denies use of any anticoagulation. Patient has been started on heparin drip. Patient is symptomatically better --wants to go home because of the coronavirus in the hospital (1) Acute pulmonary embolism Current Visit: Yes Status: Acute Qualifiers: Acute cor pulmonale presence: without acute cor pulmonale Plan to address problem: Patient on IV heparin drip Symptomatically better but still slightly tachypneic and tachycardic Patient initiated on Coumadin Patient wants to be on Eliquis and wants to go home Coumadin discontinued and initiated on Eliquis Patient is safe to discharge (2) Uncontrolled hypertension Current Visit: Yes Status: Chronic Plan to address problem: Adjust blood pressure medications to control the BP Continue home blood pressure medications Hydralazine increased to 50 mg every 8hrs Patient to follow-up with his primary care physician regarding acute pulmonary embolism Disposition: - TO HOME OR SELFCARE - Discharge Diagnoses (1) Acute pulmonary embolism Status: Acute Qualifiers: Acute cor pulmonale presence: without acute cor pulmonale (2) Uncontrolled hypertension Status: Chronic (3) DVT prophylaxis Status: Acute Core Measure Documentation - Palliative Care Palliative Care/ Comfort Measures: Not Applicable - Core Measures Any of the following diagnoses?: none Exam - Constitutional Vitals: Temp Pulse Resp BP Pulse Ox 98.0 F 76 18 154/100 96 07/13/19 07:24 07/13/19 12:46 07/13/19 07:24 07/13/19 07:24 07/13/19 04:27 General appearance: Present: no acute distress, well-nourished - EENT Eyes: Present: PERRL ENT: hearing intact, clear oral mucosa - Neck Neck: Present: supple, normal ROM - Respiratory Respiratory effort: normal Respiratory: bilateral: CTA - Cardiovascular Heart rate: 78 Rhythm: regular Heart Sounds: Present: S1 & S2. Absent: rub, click - Extremities Extremities: pulses symmetrical, No edema Peripheral Pulses: within normal limits - Abdominal General gastrointestinal: Present: soft, non-tender, non-distended, normal bowel sounds Male genitourinary: Present: normal - Integumentary Integumentary: Present: clear, warm, dry - Musculoskeletal Musculoskeletal: gait normal, strength equal bilaterally - Psychiatric Psychiatric: appropriate mood/affect, intact judgment & insight - Neurologic Neurologic: CNII-XII intact, moves all extremities Plan Activity: no restrictions Diet: low cholesterol, low salt Follow up with: TAN WOODY MD [Primary Care Provider] - 7 Days
[2019-07-13] MEDS ORDERED: hydrALAZINE 25 MG TAB PO SCH (18:00)
== END 2019-07-13 18:30 | disposition home or self-care (01) | DRG 175 ==
LOC: SUATTDRO 01:16 → ED 01:16 → 4A 03:32
PROVIDERS: ADMIT Internal Medicine Geriatric Medicine; ATTEND Internal Medicine
DX: I26.09 Other pulmonary embolism with acute cor pulmonale (principal); I50.9 Heart failure, unspecified; I11.0 Hypertensive heart disease with heart failure; E11.9 Type 2 diabetes mellitus without complications; Z88.6 Allergy status to analgesic agent; Z79.4 Long term (current) use of insulin
CPT/HCPCS: 36415; 71046; 71275; 80048; 82962; 83880; 84484; 85014; 85018; 85025; 85049; 85379; 85520; 85610; 85730; 93005; 93010; G0378; J0360; J1200; J1644; J1885; Q9967